=== PATIENT | male | born 1945 | race Caucasian/White ===

== ENCOUNTER 2024-08-21 09:02 | Observation (INO) ==
[~2024-08-21 09:02] MED LIST: Naloxone 0.4 mg VIAL 0.4 mg/ml 1 ml VIAL IV PRN; Ondansetron 4 mg VIAL 2 MG/ML 2 ml VIAL IV PRN; fentaNYL 100 mcg/2 ml 50 MCG/ML VIAL IV PRN
[2024-08-21 09:52] LABS: Rapid COVID-19 Molecular Undetected (Undetected)
[2024-08-21] MEDS ORDERED: ceFAZolin 2 GM PREMIX 2 GM/50 ML BAG ONE (10:03)
[2024-08-21] MEDS ORDERED: Tranexamic Acid 1 GM/100ML BAG 2,000 MG/200 ML BAG IV ONE (10:03)
[2024-08-21] MEDS ORDERED: Midazolam 2 mg/2 ml VIAL 1 mg/ml 2 ml VIAL (2 mg) ONE (10:15)
[2024-08-21] MEDS ORDERED: ROPIVACAINE 5 MG/ML 30 ML BTL (0.5%) ONE (10:15)
[2024-08-21] MEDS ORDERED: Dexamethasone IV 4 MG/ML VIAL 1 ml VIAL ONE ×2 (10:15→10:41)
[2024-08-21] MEDS ORDERED: Lidocaine 2% PF 5 ML VIAL ONE (10:41)
[2024-08-21] MEDS ORDERED: Propofol 10 MG/ML 20 ML BTL ONE (10:41)
[2024-08-21] MEDS ORDERED: fentaNYL 100 mcg/2 ml 50 MCG/ML VIAL ONE ×2 (10:41→12:49)
[2024-08-21] MEDS ORDERED: Ondansetron 4 mg VIAL 2 MG/ML 2 ml VIAL ONE (10:41)
[2024-08-21] MEDS ORDERED: Acetaminophen IV 1 GM/100ML 1,000 MG/100 ML BAG IV ONE (12:36)
[2024-08-21] MEDS ORDERED: Phenylephrine 40 mcg/mL 10mL (400mcg) SYRINGE ONE (12:37)
[2024-08-21] MEDS ORDERED: Ondansetron ODT 4 mg TAB 4 MG TAB PO PRN (15:11)
[2024-08-21] MEDS ORDERED: Morphine 2 MG/ML SYRINGE IV PRN (15:11)
[2024-08-21] MEDS ORDERED: Ondansetron 4 mg VIAL 2 MG/ML 2 ml VIAL IV PRN (15:11)
[2024-08-21] MEDS ORDERED: Calcium Carb (TUMS) 500 mg CHEW TAB PO PRN (15:11)
[2024-08-21] MEDS ORDERED: Magnesium Hydroxide LIQ 30 ML UDC PO PRN (15:11)
[2024-08-21] MEDS ORDERED: Lactulose 30 ml UDC PO PRN (15:11)
[2024-08-21] MEDS: Lactated Ringers 1000 ml BAG 1,000 ML IV SCH ×2 (16:44→16:54)
[2024-08-21] MEDS: Buffered Lidocaine 1% SYRIN 1 ml INTRADERM ONE (16:54)
[2024-08-21] MEDS: ceFAZolin 2 GM PREMIX 2 GM/50 ML BAG IV SCH (20:39)
[2024-08-21] MEDS: Magnesium Hydroxide LIQ 30 ML UDC PO SCH (21:22)
[2024-08-22 06:25] LABS: Hematocrit 33.9 % (38-53); Hemoglobin 12.1 g/dL (13.2-16.3); Mean Platelet Volume 7.4 fL (7.5-11.2); Platelet Count 184 10^3/uL (150-450)
[2024-08-22 06:42] LABS: Calcium 8.6 mg/dL (8.6-10.3); Creatinine, Serum 1.15 mg/dL (0.67-1.17); eGFR CKD-EPI 65.1 (>60)
[2024-08-22] MEDS: Vitamin THERAPEUTIC TAB PO SCH (07:42)
[2024-08-22 11:03] VITALS: BP 157/85
== END 2024-08-22 12:15 | disposition home or self-care (01) ==
LOC: OR 09:02 → SSU 09:02
PROVIDERS: ADMIT Orthopaedic Surgery Adult Reconstructive Orthopaedic Surgery; ATTEND Orthopaedic Surgery Adult Reconstructive Orthopaedic Surgery